=== PATIENT | female | born 1950 | race Caucasian/White ===

== ENCOUNTER → 2018-02-06 | Outpatient (CLI) | payer MEDICARE, OTHER | END | disposition home or self-care (01) | LOC: Rad HDHVI 13:41 | PROVIDERS: ATTEND Internal Medicine Cardiovascular Disease | DX: I35.1 Nonrheumatic aortic (valve) insufficiency (principal); J44.9 Chronic obstructive pulmonary disease, unspecified; I50.23 Acute on chronic systolic (congestive) heart failure | CPT/HCPCS: 93306 ==

== ENCOUNTER → 2018-02-15 | Outpatient (CLI) | payer MEDICARE, OTHER ==
[~2018-02-15] VITALS: Ht 162.6 cm; Wt 52.6 kg
== END | disposition home or self-care (01) ==
LOC: Rad HDHVI 13:59
PROVIDERS: ATTEND Internal Medicine Cardiovascular Disease
DX: J44.9 Chronic obstructive pulmonary disease, unspecified (principal); I50.23 Acute on chronic systolic (congestive) heart failure; I35.1 Nonrheumatic aortic (valve) insufficiency
CPT/HCPCS: 78452; 93017; 96374; A9500